=== PATIENT | male | born 1990 | race Caucasian/White ===

== ENCOUNTER 2017-04-22 18:44 | Emergency (ER) | payer OTHER ==
[2017-04-22 18:56] VITALS: BP 136/76; PULSE 108; TEMP 98.4; BMI 25.7
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
== END 2017-04-22 20:46 | disposition home or self-care (01) ==
LOC: JERFT 18:44
DX: R20.2 Paresthesia of skin (principal); F17.210 Nicotine dependence, cigarettes, uncomplicated
CPT/HCPCS: 73110-TC-LT; 73130-TC-LT; 99281-25